=== PATIENT | male | born 2000 | race Caucasian/White ===

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

== ENCOUNTER 2019-01-04 07:18 | Emergency (ER) | payer MEDICAID, OTHER ==
[~2019-01-04] VITALS: Ht 172.7 cm; Wt 60.0 kg
[~2019-01-04 07:18] MED LIST: IBUP80TA PO; PERC5TAB12 PO
[2019-01-04] MEDS ORDERED: BENZONATATE 100 MG CAP PO ONE (08:00)
[2019-01-04] MEDS ORDERED: IBUPROFEN 600 MG TAB PO ONE (08:00)
[2019-01-04 08:03] LABS: BASO # 0.1 10^3/uL (0.0-0.2); BASO % 0.5 % (0.0-1.0); EOS # 0.4 10^3/uL (0.0-0.50); EOS % 3.6 % (0.0-3.0); HEMATOCRIT 41.9 % (42.0-52.0); HEMOGLOBIN 14.2 g/dl (13.5-17.5); LYMPH # 2.1 10^3/uL (1.5-6.5); LYMPH % 20.4 % (24.0-44.0); MEAN CORPUSCULAR HEMOGLOBIN 31.4 pg (27.0-33.0); MEAN CORPUSCULAR HGB CONC 33.9 g/dl (32.0-36.5); MEAN CORPUSCULAR VOLUME 92.7 fl (80.0-96.0); MONO # 0.9 10^3/uL (0.0-0.8); MONO % 8.3 % (0.0-5.0); NEUTROPHILS # 6.8 10^3/uL (1.8-7.7); NEUTROPHILS % 66.9 % (36.0-66.0); PLATELET COUNT, AUTOMATED 281 10^3/uL (150-450); RED BLOOD COUNT 4.52 10^6/uL (4.30-6.10); WHITE BLOOD COUNT 10.2 10^3/uL (4.0-10.0)
[2019-01-04 08:34] LABS: MONO REFLEX EBV COMP NEGATIVE (NEGATIVE)
[2019-01-04] MEDS ORDERED: KEFL500C17 PO (08:40)
[2019-01-04] MEDS ORDERED: BENZ200C70 PO (08:40)
[2019-01-04 08:42] VITALS: BP 121/69
[2019-01-04] MEDS ORDERED: CEPHALEXIN 500 MG CAP PO ONE (09:00)
[2019-01-06 14:24] LABS: EBV VIRAL CAPSID AG IgG >600.0 U/mL (0.0-17.9); EBV VIRAL CAPSID AG IgM <36.0 U/mL (0.0-35.9)
== END 2019-01-04 08:56 | disposition home or self-care (01) ==
LOC: M ED 07:18
DX: J02.9 Acute pharyngitis, unspecified (principal); F17.210 Nicotine dependence, cigarettes, uncomplicated

== ENCOUNTER 2019-06-23 13:07 | Emergency (ER) | payer OTHER ==
[~2019-06-23] VITALS: Ht 172.7 cm; Wt 61.4 kg
[~2019-06-23 13:07] MED LIST changes: +BENZ200C70 PO; +KEFL500C17 PO
--- NOTE | 2019-06-23 13:49 | REP ---
Four views right hand: 06/23/2019. Indication: Pain following injury. Comparison: 05/21/1980. Findings: There is a mildly displaced and angulated fracture through the mid 5th metacarpal. No additional fractures are present. There is no evidence of subluxation/dislocation. Impression: Mid fifth metacarpal fracture. Electronically Signed by Charan Smith DO 06/23/2019 01:40 P
[2019-06-23 15:24] VITALS: BP 115/68
== END 2019-06-23 15:25 | disposition home or self-care (01) ==
LOC: M ED 13:07
DX: S62.626A Displaced fracture of middle phalanx of right little finger, initial encounter for closed fracture (principal); W22.8XXA Striking against or struck by other objects, initial encounter; Y92.018 Other place in single-family (private) house as the place of occurrence of the external cause

== ENCOUNTER 2019-08-07 18:25 | Emergency (ER) | payer OTHER ==
[~2019-08-07] VITALS: Ht 172.7 cm; Wt 62.3 kg
[2019-08-07 20:52] VITALS: BP 119/70
[2019-08-07 21:25] LABS: ALBUMIN 3.7 GM/DL (3.2-5.2); ALT/SGPT 30 U/L (12-78); BILIRUBIN,TOTAL 0.2 MG/DL (0.2-1.0); BLOOD UREA NITROGEN 11 MG/DL (7-18); CALCIUM LEVEL 8.9 MG/DL (8.5-10.1); CARBON DIOXIDE LEVEL 34 MEQ/L (21-32); CHLORIDE LEVEL 106 MEQ/L (98-107); CREATININE FOR GFR 0.74 MG/DL (0.70-1.30); GLUCOSE, FASTING 82 MG/DL (70-100); SODIUM LEVEL 143 MEQ/L (136-145)
[2019-08-07 21:28] LABS: CHLAMYDIA DNA AMPLIFICATION NEGATIVE (NEGATIVE); GC DNA AMPLIFICATION NEGATIVE (NEGATIVE)
[2019-08-08 11:08] LABS: HEPATITIS B SURFACE ANTIGEN NEGATIVE (NEGATIVE)
[2019-08-08 11:33] LABS: HEPATITIS B CORE ANTIBODY IGM NEGATIVE (NEGATIVE); HEPATITIS C VIRUS ABY INDEX < 0.0 INDEX (<0.8)
[2019-08-08 11:35] LABS: HIV 1&2 SCREEN CENTAUR NEGATIVE (NEGATIVE)
[2019-08-08 11:36] LABS: HEPATITIS A ANTIBODY IGM NEGATIVE (NEGATIVE)
== END 2019-08-07 21:04 | disposition home or self-care (01) ==
LOC: M ED 18:25
DX: Z20.2 Contact with and (suspected) exposure to infections with a predominantly sexual mode of transmission (principal); Z20.828 Contact with and (suspected) exposure to other viral communicable diseases; F17.210 Nicotine dependence, cigarettes, uncomplicated

== ENCOUNTER 2019-09-01 18:07 | Emergency (ER) | payer OTHER ==
[~2019-09-01] VITALS: Ht 170.2 cm; Wt 59.4 kg
[2019-09-01] MEDS ORDERED: TYLENOL (18:15)
[2019-09-01] MEDS ORDERED: IBUPROFEN 600 MG TAB PO ONE (18:30)
[2019-09-01 18:59] LABS: INFLUENZA A AMPLIFICATION NEGATIVE (NEGATIVE); INFLUENZA B AMPLIFICATION NEGATIVE (NEGATIVE)
[2019-09-01] MEDS ORDERED: PENI500T PO (19:42)
[2019-09-01] MEDS ORDERED: PENICILLIN V POTASSIUM 500 MG TAB PO ONE (19:45)
[2019-09-01 19:47] VITALS: BP 125/67
== END 2019-09-01 19:48 | disposition home or self-care (01) ==
LOC: M ED 18:07
DX: R50.9 Fever, unspecified (principal); J02.0 Streptococcal pharyngitis; F17.218 Nicotine dependence, cigarettes, with other nicotine-induced disorders

== ENCOUNTER 2023-05-19 18:40 | Emergency (ER) | payer MEDICAID, OTHER ==
[~2023-05-19] VITALS: Ht 172.7 cm; Wt 62.8 kg
[~2023-05-19 18:40] MED LIST changes: +PENI500T PO; +TYLENOL
[2023-05-19 18:41] VITALS: TEMP 98.4
[2023-05-20 00:01] VITALS: BP 138/69; O2SAT 98
== END 2023-05-20 00:02 | disposition home or self-care (01) ==
LOC: M ED 18:40
DX: S49.91XA Unspecified injury of right shoulder and upper arm, initial encounter (principal); F17.200 Nicotine dependence, unspecified, uncomplicated; F10.10 Alcohol abuse, uncomplicated; V29.99XA Rider (driver) (passenger) of other motorcycle injured in unspecified traffic accident, initial encounter; Y92.410 Unspecified street and highway as the place of occurrence of the external cause; Y93.9 Activity, unspecified; Y99.9 Unspecified external cause status; Z79.899 Other long term (current) drug therapy